=== PATIENT | female | born 1970 | race Caucasian/White ===

== ENCOUNTER → 2023-12-06 13:06 | Outpatient (BNVA) | payer MEDICAID, SELFPAY | PROVIDERS: PCP Nurse Practitioner; Referring Provider Nurse Practitioner; Visit Provider Specialist | DX: R29.90 Unspecified symptoms and signs involving the nervous system (principal); G25.0 Essential tremor; F10.96 Alcohol use, unspecified with alcohol-induced persisting amnestic disorder | CPT/HCPCS: 99204 ==